=== PATIENT | female | born 1995 | race Caucasian/White ===

== ENCOUNTER 2017-05-12 21:45 | Emergency (ER) | payer SELFPAY ==
[~2017-05-12] VITALS: Ht 162.6 cm; Wt 47.0 kg
[2017-05-12 22:52] VITALS: BP 125/82
== END 2017-05-13 02:30 | disposition left against medical advice (07) ==
LOC: ER 21:45
DX: Z53.21 Procedure and treatment not carried out due to patient leaving prior to being seen by health care provider (principal)

== ENCOUNTER 2021-01-10 13:24 | Emergency (ER) | payer MEDICAID ==
[~2021-01-10] VITALS: Ht 152.4 cm; Wt 66.0 kg
[2021-01-10] MEDS ORDERED: ACETAMINOPHEN 325MG TABLET PO STA (15:14)
[2021-01-10] MEDS ORDERED: FAMOTIDINE 20MG TABLET PO ONE (15:15)
[2021-01-10] MEDS ORDERED: ONDANSETRON 4MG ODT PO ONE (15:15)
[2021-01-10 15:47] LABS: BASOPHILS % 0.1 % (0.0-2.0); EOSINOPHILS % 0.2 % (0.0-5.0); HEMATOCRIT. 33.3 % (36.0-48.0); HEMOGLOBIN. 11.6 g/dL (12.0-16.0); LYMPHOCYTES % 16.4 % (20.0-50.0); MEAN CORPUSCULAR HEMOGLOBIN 31.7 pg (28.0-32.0); MEAN CORPUSCULAR VOLUME 91.2 fL (81.0-99.0); MEAN PLATELET VOLUME 10.1 fl (7.4-10.4); MONOCYTES % 4.2 % (2.0-8.0); NEUTROPHILS % 79.1 % (40.0-76.0); PLATELET 140 x1000/uL (130-400); RED BLOOD CELL COUNT 3.65 mill/uL (4.2-5.4); RED CELL DISTRIBUTION WIDTH 13.4 % (11.6-14.6)
[2021-01-10 15:52] LABS: CHLORIDE 108 mEq/L (98-107)
[2021-01-10 16:18] LABS: B-HCG QUANTITATIVE 5758 mIU/mL (<3)
[2021-01-10] MEDS ORDERED: ONDA4TAB11 PO (17:07)
[2021-01-10 17:51] LABS: CLARITY URINE CLEAR (CLEAR); COLOR URINE YELLOW (YELLOW); KETONES URINE 2+ (NEGATIVE); LEUKOCYTE ESTERASE URINE NEGATIVE (NEGATIVE); NITRITE URINE NEGATIVE (NEGATIVE); OCCULT BLOOD URINE NEGATIVE (NEGATIVE); PROTEIN URINE NEGATIVE (NEGATIVE); SPECIFIC GRAVITY URINE 1.007 (1.005-1.030); UROBILINOGEN URINE 0.2 E.U./dL (0.2-1.0)
[2021-01-10 18:15] VITALS: BP 98/49
== END 2021-01-10 18:26 | disposition home or self-care (01) ==
LOC: ER 14:31
DX: O21.0 Mild hyperemesis gravidarum (principal); Z3A.22 22 weeks gestation of pregnancy
CPT/HCPCS: 36415; 76805; 80053; 81003; 84702; 85025; 99284; Q0162; Z7610

== ENCOUNTER 2021-04-29 09:29 | Observation (INO) | payer MEDICAID ==
[~2021-04-29 09:29] MED LIST: ONDA4TAB11 PO
== END 2021-04-29 11:44 | disposition home or self-care (01) ==
LOC: 8 EST LDRP 09:29
PROVIDERS: ADMIT Obstetrics & Gynecology; ATTEND Obstetrics & Gynecology
DX: Z34.93 Encounter for supervision of normal pregnancy, unspecified, third trimester (principal); Z79.899 Other long term (current) drug therapy; Z3A.37 37 weeks gestation of pregnancy
CPT/HCPCS: 59025; 76815; 76818; G0378

== ENCOUNTER 2021-05-11 12:19 | Inpatient (IN) | payer MEDICAID ==
[~2021-05-11] VITALS: Ht 152.4 cm; Wt 90.7 kg
[2021-05-11] MEDS ORDERED: NALOXONE HCL 0.4 MG/ML 1ML VIAL IM PRN (14:30)
[2021-05-11] MEDS ORDERED: DEXT 5%/LR + PITOCIN 20UNITS/L 1,000 ML IV SCH (14:30)
[2021-05-11] MEDS ORDERED: METHYLERGONOVINE MALEATE 0.2 MG/ML IM PRN (14:30)
[2021-05-11] MEDS ORDERED: LIDOCAINE HCL 1% 20ML VIAL (Pyxis) INJ INFIL SCH (14:30)
[2021-05-11] MEDS ORDERED: BUTORPHANOL TARTRATE 2 MG/ML VIAL IV PRN (14:30)
[2021-05-11] MEDS ORDERED: CARBOPROST TROMETHAMINE 250 MCG/ML AMPUL IM PRN (14:30)
[2021-05-11] MEDS ORDERED: LACTATED RINGERS 1,000 ML IV SCH ×2 (14:30→15:30)
[2021-05-11] MEDS ORDERED: ROPIVACAINE HCL/PF EPIDURAL 200 ML EP SCH (16:00)
[2021-05-11] MEDS ORDERED: MISOPROSTOL 100MCG TABLET VG SCH (16:00)
[2021-05-11 16:32] LABS: BASOPHILS % 0.1 % (0.0-2.0); EOSINOPHILS % 0.2 % (0.0-5.0); HEMOGLOBIN. 11.2 g/dL (12.0-16.0); MEAN CORPUSCULAR HEMOGLOBIN 27.6 pg (28.0-32.0); MEAN PLATELET VOLUME 10.7 fl (7.4-10.4); MONOCYTES % 6.3 % (2.0-8.0); NEUTROPHILS % 77.4 % (40.0-76.0); PLATELET 105 x1000/uL (130-400); RED BLOOD CELL COUNT 4.05 mill/uL (4.2-5.4); RED CELL DISTRIBUTION WIDTH 18.4 % (11.6-14.6)
[2021-05-11 16:37] LABS: CLARITY URINE CLEAR (CLEAR); COLOR URINE YELLOW (YELLOW); KETONES URINE NEGATIVE (NEGATIVE); LEUKOCYTE ESTERASE URINE NEGATIVE (NEGATIVE); NITRITE URINE NEGATIVE (NEGATIVE); OCCULT BLOOD URINE NEGATIVE (NEGATIVE); PROTEIN URINE NEGATIVE (NEGATIVE); SPECIFIC GRAVITY URINE 1.006 (1.005-1.030); UROBILINOGEN URINE 0.2 E.U./dL (0.2-1.0)
[2021-05-11 16:41] LABS: INR 0.9; PARTIAL THROMBOPLASTIN TIME 26.2 sec (23.4-31.0); PROTHROMBIN TIME 9.8 sec (9.6-11.0)
[2021-05-11 17:11] LABS: *AMPHETAMINES SCREEN URINE NEGATIVE (NEGATIVE)
[2021-05-11 17:12] LABS: *BARBITURATES SCREEN URINE NEGATIVE (NEGATIVE); *BENZODIAZEPINES SCREEN URINE NEGATIVE (NEGATIVE); *COCAINE SCREEN URINE NEGATIVE (NEGATIVE); METHADONE URINE SCREEN NEGATIVE (NEGATIVE); OPIATES URINE SCREEN NEGATIVE (NEGATIVE); PHENCYCLIDINE URINE SCREEN NEGATIVE (NEGATIVE)
[2021-05-11 17:13] LABS: CANNABINOID URINE SCREEN NEGATIVE (NEGATIVE)
[2021-05-11 17:19] LABS: HEPATITIS B SURFACE ANTIGEN NEGATIVE
[2021-05-11] MEDS: MISOPROSTOL 100MCG TABLET VG SCH ×2 (17:45→21:52)
[2021-05-12] MEDS: MISOPROSTOL 100MCG TABLET VG SCH ×2 (02:45→06:53)
[2021-05-12] MEDS ORDERED: BUPIVACAINE HCL/PF 0.25% (2.5MG/ML) 10ML ONE (12:10)
[2021-05-12] MEDS ORDERED: FENTANYL CITRATE/PF 50MCG/ML 2ML VIAL ONE ×4 (12:10→21:05)
[2021-05-12] MEDS ORDERED: ROPIVACAINE HCL/PF EPIDURAL 200 ML EPI ONE (12:10)
[2021-05-12] MEDS ORDERED: DIPHENHYDRAMINE 25MG CAPSULE PO PRN (23:00)
[2021-05-12] MEDS ORDERED: IBUPROFEN 400MG TABLET PO PRN (23:00)
[2021-05-12] MEDS ORDERED: DEXT 5%/LR + PITOCIN 20UNITS/L 1,000 ML IV SCH (23:00)
[2021-05-12] MEDS ORDERED: RHO(D) IMMUNE GLOBULIN 300 MCG/SYR IM PRN (23:00)
[2021-05-12] MEDS ORDERED: LANOLIN OINT 7GM TUBE TOP PRN (23:00)
[2021-05-13 01:00] VITALS: BP 95/48
[2021-05-13 04:00] VITALS: BP 99/47
[2021-05-13 07:38] LABS: BASOPHILS % 0.1 % (0.0-2.0); HEMATOCRIT. 26.2 % (36.0-48.0); HEMOGLOBIN. 8.7 g/dL (12.0-16.0); LYMPHOCYTES % 9.4 % (20.0-50.0); MEAN CORPUSCULAR HEMOGLOBIN 27.8 pg (28.0-32.0); MEAN PLATELET VOLUME 11.1 fl (7.4-10.4); MONOCYTES % 6.9 % (2.0-8.0); NEUTROPHILS % 83.6 % (40.0-76.0); PLATELET 90 x1000/uL (130-400); RED BLOOD CELL COUNT 3.12 mill/uL (4.2-5.4); RED CELL DISTRIBUTION WIDTH 19.2 % (11.6-14.6)
[2021-05-13 08:24] VITALS: BP 97/46
[2021-05-13] MEDS: IBUPROFEN 800MG TABLET PO PRN ×2 (08:52→22:20)
[2021-05-13 16:13] VITALS: BP 107/62
[2021-05-13 20:00] VITALS: BP 113/62
[2021-05-14 04:00] VITALS: BP 106/56
[2021-05-14 08:58] VITALS: BP 105/62
== END 2021-05-14 10:15 | disposition home or self-care (01) | DRG 560 ==
LOC: OBSVTOIN 12:19 → 8 EST LDRP 12:19 → 8EST 05-13 00:40
PROVIDERS: ADMIT Obstetrics & Gynecology; ATTEND Obstetrics & Gynecology
PROC: 10E0XZZ Delivery of Products of Conception, External Approach (ICD-10-PCS; principal; 2021-05-12)
PROC: 0HQ9XZZ Repair Perineum Skin, External Approach (ICD-10-PCS; 2021-05-12)
PROC: 3E0R3BZ Introduction of Anesthetic Agent into Spinal Canal, Percutaneous Approach (ICD-10-PCS; 2021-05-12)
PROC: 00HU33Z Insertion of Infusion Device into Spinal Canal, Percutaneous Approach (ICD-10-PCS; 2021-05-12)
DX: O41.03X0 Oligohydramnios, third trimester, not applicable or unspecified (principal); Z37.0 Single live birth; D69.6 Thrombocytopenia, unspecified; D62 Acute posthemorrhagic anemia; O99.12 Other diseases of the blood and blood-forming organs and certain disorders involving the immune mechanism complicating childbirth; O99.13 Other diseases of the blood and blood-forming organs and certain disorders involving the immune mechanism complicating the puerperium; O69.81X0 Labor and delivery complicated by cord around neck, without compression, not applicable or unspecified; D72.829 Elevated white blood cell count, unspecified; O70.0 First degree perineal laceration during delivery; O99.02 Anemia complicating childbirth; Z3A.39 39 weeks gestation of pregnancy
CPT/HCPCS: 36415; 76805; 76818; 80305; 81003; 85025; 86592; 86703; 86762; 86850; 86900; 87340; 99281; J2590; J2795; J3010; J3490; J7120

== ENCOUNTER 2021-05-23 23:20 | Emergency (ER) | payer MEDICAID ==
[~2021-05-23] VITALS: Ht 165.1 cm; Wt 83.0 kg
[2021-05-24] MEDS ORDERED: ACETAMINOPHEN 325MG TABLET PO ONE (01:15)
[2021-05-24] MEDS ORDERED: ACET-2708 MT (02:28)
[2021-05-24] MEDS ORDERED: IBUP-2028 MT (02:28)
[2021-05-24 02:39] VITALS: BP 116/76
== END 2021-05-24 02:40 | disposition home or self-care (01) ==
LOC: ER 23:20
DX: N64.4 Mastodynia (principal)
CPT/HCPCS: 99282

== ENCOUNTER 2024-12-07 01:52 | Emergency (ER) | payer MEDICAID ==
[~2024-12-07] VITALS: Ht 154.9 cm; Wt 69.0 kg
[~2024-12-07 01:52] MED LIST changes: +ACET-2708 MT; +IBUP-2028 MT; +ONDA-239 PO; -ONDA4TAB11 PO
[2024-12-07 03:06] VITALS: BP 108/60; TEMP 37.1; O2SAT 100
[2024-12-07 03:31] LABS: BASOPHILS % 0.4 % (0.0-2.0); EOSINOPHILS % 0.7 % (0.0-5.0); HEMATOCRIT. 38.6 % (36.0-48.0); HEMOGLOBIN. 13.6 g/dL (12.0-16.0); LYMPHOCYTES % 33.3 % (20.0-50.0); MEAN CORPUSCULAR HEMOGLOBIN 30.2 pg (28.0-32.0); MEAN CORPUSCULAR HGB CONC 35.2 g/dL (31.0-37.0); MEAN CORPUSCULAR VOLUME 85.8 fL (81.0-99.0); MEAN PLATELET VOLUME 11.1 fl (7.4-10.4); MONOCYTES % 5.4 % (2.0-8.0); NEUTROPHILS % 60.2 % (40.0-76.0); PLATELET 153 x1000/uL (130-400); WHITE BLOOD COUNT 10.3 x1000/uL (4.5-11.0)
[2024-12-07 03:40] LABS: CLARITY URINE CLEAR (CLEAR); COLOR URINE YELLOW (YELLOW); GLUCOSE URINE NEGATIVE (NEGATIVE); KETONES URINE NEGATIVE (NEGATIVE); LEUKOCYTE ESTERASE URINE 2+ (NEGATIVE); NITRITE URINE NEGATIVE (NEGATIVE); OCCULT BLOOD URINE NEGATIVE (NEGATIVE); PH URINE 6.5 (4.5-8.0); PROTEIN URINE NEGATIVE (NEGATIVE); SPECIFIC GRAVITY URINE 1.018 (1.005-1.030); UROBILINOGEN URINE 0.2 E.U./dL (0.2-1.0)
[2024-12-07 03:44] LABS: CHLORIDE 105 mEq/L (98-107); POTASSIUM 3.5 mEq/L (3.5-5.1); SODIUM 139 mEq/L (136-145)
[2024-12-07 03:45] LABS: CARBON DIOXIDE 24 mEq/L (21-32)
[2024-12-07 03:46] LABS: CALCIUM 9.8 mg/dL (8.7-10.4)
[2024-12-07 03:50] LABS: CREATININE 0.8 mg/dL (0.6-1.0); GLUCOSE 97 mg/dL (70-105)
[2024-12-07 03:51] LABS: UREA NITROGEN BLOOD 10 mg/dL (9-23)
[2024-12-07 03:52] LABS: ALANINE AMINOTRANSFERASE 57 IU/L (10-49); ALBUMIN 4.6 g/dL (3.2-4.8); ASPARTATE AMINOTRANSFERASE 106 IU/L (<34)
[2024-12-07 03:53] LABS: BILIRUBIN TOTAL 0.7 mg/dL (0.1-1.0); PROTEIN TOTAL 7.7 g/dL (6.0-8.3)
[2024-12-07 03:57] LABS: RBC URINE 0-2 /hpf (0-2); SQUAMOUS EPITHELIAL CELL URINE 1+ /lpf (RARE/1+)
[2024-12-07 03:58] LABS: BACTERIA URINE TRACE
[2024-12-07] MEDS ORDERED: NITR-87 MT (04:14)
[2024-12-07] MEDS ORDERED: T3 PO (04:14)
[2024-12-07 04:20] LABS: HCG SCREEN NEGATIVE
[2024-12-07] MEDS: ACETAMINOPHEN 500MG TABLET PO ONE (04:29)
[2024-12-07] MEDS: KETOROLAC 30MG/ML VIAL IM ONE (04:29)
[2024-12-07 05:24] VITALS: PULSE 84; RESP 16; O2SAT 100
== END 2024-12-07 05:32 | disposition home or self-care (01) ==
LOC: ER 01:52
DX: K80.20 Calculus of gallbladder without cholecystitis without obstruction (principal); Z79.899 Other long term (current) drug therapy
CPT/HCPCS: 80053; 81003; 84703; 83690; 85025; 36415; 76705; 96372; 99285; J1885; Z7610